=== PATIENT | male | born 1990 | race Caucasian/White ===

== ENCOUNTER 2016-07-06 03:23 | Emergency (ER) | payer OTHER ==
[2016-07-06] MEDS ORDERED: SODIUM CHLORIDE 1,000 ML IV ONE ×2 (03:33→03:34)
[2016-07-06] MEDS ORDERED: ONDANSETRON 4 MG/2 ML VIAL IVPUSH ONE ×2 (03:33→04:01)
--- NOTE | 2016-07-06 03:37 | PDOC ---
History of Present Illness - General Stated Complaint: NAUSEA & VOMITTING Time Seen by Provider: 07/06/16 03:31 History Source: Patient Exam Limitations: No Limitations - History of Present Illness Initial Comments: 07/06/16 03:34 This is a 25-year-old male who comes in complaining of nausea and vomiting and now is feeling slightly dizzy. Patient denies any abdominal pain fevers or chills. Patient denies any chest pain palpitations headache or any other symptoms. Patient denies any associated diarrhea. PAST MEDICAL HISTORY: no significant history PAST SURGICAL HISTORY: no significant history FAMILY HISTORY: no pertinant history SOCIAL HISTORY: Pt lives with family and is employed. MEDICATIONS: reviewed ALLERGIES: As per nursing notes Review of Systems General: No fevers or chills, no weakness, no weight loss HEENT: No change in vision. No sore throat,. No ear pain CardioVascular: No chest pain or shortness of breath Respiratory:No cough, or wheezing. Gastrointestinal: + nausea, + vomitting, no diarrhea or constipation, No rectal bleeding Genitourinary: No dysuria, hematuria, or frequency Musculoskeletal: No joint or muscle pain or swelling Neurologic: No headache, vertigo, dizziness or loss of consciousness Psychiatric: nor depression Skin: No rashes or easy bruising Endocrine: no increased thirst or abnormal weight change Allergic: no skin or latex allergy All other systems reviewed and normal Exam: General: Well-nourished well-developed individual, no acute distress HEENT: Throat: Normal, tonsils normal, no erythema or exudate Neck: Supple, no meningeal signs, no lymphadenopathy Eyes::Pupils equal reactive and round, extraocular motion intact Chest: Nontender to palpation Cardiac: S1-S2 normal, regular rate and rhythm, no murmurs rubs or gallops Respiratory: Lungs clear to auscultation bilateral Abdomen: Soft, nondistended, normal bowel sounds, nontender to palpation diffusely Extremities: Warm, dry, no cyanosis, clubbing, or edema Skin: No rashes Neuro: Alert and oriented x3, nonfocal exam, grossly intact, normal gait Psych: Normal mood and affect Assessment and plan: This is a 25-year-old male who comes in complaining of nausea vomiting but no diarrhea. Patient hydrated with 2 L of fluid given some Zofran able to tolerate pills and discharged home Past History - Past Medical History Allergies/Adverse Reactions: Allergies Allergy/AdvReac Type Severity Reaction Status Date / Time No Known Allergies Allergy Verified 07/06/16 03:28 Home Medications: Ambulatory Orders Dextroamphetamine/Amphetamine [Adderall 10 mg Tablet] 20 mg PO DAILY 07/06/16 Ondansetron [Zofran Odt -] 4 mg SL TID #12 od.tablet 07/06/16 - Immunization History TDAP Vaccination: Yes Immunization Up to Date: Yes - Psycho/Social/Smoking Cessation Hx Anxiety: No Suicidal Ideation: No Smoking Status: Yes Smoking History: Current every day smoker Have you smoked in the past 12 months: Yes Number of Cigarettes Smoked Daily: 20 Hx Alcohol Use: Yes Drug/Substance Use Hx: Yes (COCAINE/ADDERAL) Substance Use Type: Alcohol, Cocaine, Prescribed *DC/Admit/Observation/Transfer Diagnosis at time of Disposition: Nausea and vomiting Qualifiers: Vomiting type: unspecified Vomiting Intractability: non-intractable Qualified Code(s): R11.2 - Nausea with vomiting, unspecified - Discharge Dispostion Disposition: HOME Condition at time of disposition: Stable - Prescriptions Prescriptions: Ondansetron [Zofran Odt -] 4 mg SL TID #12 od.tablet - Patient Instructions Printed Discharge Instructions: DI for Nausea -- Adult, DI for Vomiting -- Adult, Smoking Cessation Additional Instructions: Clear liquids only for the next 6 hours.. After that if you have had no further vomiting you may have bananas, rice, applesauce, or toast. If no further vomiting for another 8 hours you may have regular food. If you vomit again then nothing to eat or drink for 2 hours. then start back with the clear liquids. Return to the emergency department immediately with ANY new, persistent or worsening symptoms. You MUST call and follow up with your doctor tomorrow if not better. Please make sure your doctor reviews the results of your emergency evaluation. Return to the emergency department immediately with ANY new, persistent or worsening symptoms. Continue any medications as previously prescribed by your physician. You should follow up with your primary doctor as soon as possible regarding today's emergency department visit. . Please make sure your doctor reviews the results of your emergency evaluation. Thank you for coming to the Emergency Department today for your care. It was a pleasure to see you today. Please note that your evaluation is INCOMPLETE until you follow-up with your doctor.
[2016-07-06 03:42] VITALS: BP 122/73; PULSE 76; TEMP 97.9; BMI 27.1
== END 2016-07-06 04:37 | disposition home or self-care (01) ==
LOC: FER 03:23
PROC: 3E033GC Introduction of Other Therapeutic Substance into Peripheral Vein, Percutaneous Approach (ICD-10-PCS; principal; 2016-07-06)
PROC: 3E0337Z Introduction of Electrolytic and Water Balance Substance into Peripheral Vein, Percutaneous Approach (ICD-10-PCS; 2016-07-06)
DX: R11.2 Nausea with vomiting, unspecified (principal); F17.210 Nicotine dependence, cigarettes, uncomplicated
CPT/HCPCS: 99281-25

== ENCOUNTER 2018-01-31 12:46 | Emergency (ER) | payer OTHER ==
[2018-01-31 12:50] VITALS: BMI 28.5
[2018-01-31] MEDS ORDERED: SODIUM CHLORIDE 0.9% 1000 ML INFUS.BAG IV ONE ×2 (12:54→13:34)
[2018-01-31] MEDS ORDERED: ONDANSETRON 4 MG/2 ML VIAL ONE (12:54)
[2018-01-31] MEDS ORDERED: ONDANSETRON 4 MG/2 ML VIAL IVPUSH ONE (12:54)
--- NOTE | 2018-01-31 12:57 | PDOC ---
History of Present Illness - General Chief Complaint: Nausea/Vomiting Stated Complaint: NAUSEA, VOMITING Time Seen by Provider: 01/31/18 12:56 History Source: Patient - History of Present Illness Initial Comments: 01/31/18 13:28 The patient is a 27 year old male with no significant PMH who presents to our ED c/o 1 day h/o nausea/vomiting as well as body aches. First episode of emesis was this morning at 9 a.m. when he woke up and has continued throughout the morning prompting his visit to ED. Emesis is clear, NBNB. Has not attempted PO intake today. Denies associated fever, endorses subjective chills. Also notes two episodes of loose watery stool this morning. H/o viral URI including sore throat, runny nose last week which resolved with supportive care. Body aches are diffuse, constant w/o numbness/tingling. PO Maalox did not relieve his symptoms. The patient denies chest pain, shortness of breath, abdominal pain, constipation , dysuria/hematuria, recent travel. NKDA Surgical: denies Social: 3-4 cigarettes daily, social alcohol, denies other toxic habits PMD: None will refer to IM resident clinic Past History - Past Medical History Allergies/Adverse Reactions: Allergies Allergy/AdvReac Type Severity Reaction Status Date / Time No Known Allergies Allergy Verified 01/31/18 12:47 Home Medications: Ambulatory Orders Dextroamphetamine/Amphetamine [Adderall 10 mg Tablet] 20 mg PO DAILY 07/06/16 COPD: No Other medical history: DENIES - Immunization History TDAP Vaccination: Yes Immunization Up to Date: Yes - Suicide/Smoking/Psychosocial Hx Smoking Status: Yes Smoking History: Current every day smoker Have you smoked in the past 12 months: Yes Number of Cigarettes Smoked Daily: 10 Information on smoking cessation initiated: Yes 'Breaking Loose' booklet given: 07/06/16 Hx Alcohol Use: Yes Drug/Substance Use Hx: No Substance Use Type: Alcohol, Cocaine, Prescribed Review of Systems - Review of Systems Constitutional: Yes: Chills. No: Fever HEENTM: No: Blurred Vision, Double Vision, Hearing Loss, Throat Pain Respiratory: No: Cough, Shortness of Breath, Wheezing, Hemoptysis Cardiac (ROS): No: Chest Pain, Lightheadedness, Palpitations, Syncope ABD/GI: No: Constipated, Diarrhea, Nausea, Vomiting Musculoskeletal: Yes: Joint Pain *Physical Exam - Vital Signs Last Vital Signs Temp Pulse Resp BP Pulse Ox 0/0 L 01/31/18 12:47 - Physical Exam General Appearance: Yes: Nourished, Obese HEENT: positive: Normal Voice, Hearing Grossly Normal, Other (mild pharyngeal erythema B/L, no exudates.) Neck: positive: Trachea midline, Supple. negative: Lymphadenopathy (R), Lymphadenopathy (L) Respiratory/Chest: positive: Lungs Clear, Normal Breath Sounds. negative: Crackles, Rales, Rhonchi, Stridor, Wheezing Gastrointestinal/Abdominal: positive: Normal Bowel Sounds, Soft. negative: Tender, Distended, Guarding, Rebound, Tenderness Musculoskeletal: negative: CVA Tenderness (R), CVA Tenderness (L) Extremity: positive: Normal Capillary Refill, Normal Inspection Integumentary: positive: Normal Color, Dry, Warm Neurologic: positive: Fully Oriented, Alert Moderate Sedation - Procedure Monitoring Vital Signs: Procedure Monitoring Vital Signs Temperature Pulse Rate Respiratory Rate Blood Pressure 0/0 L 01/31/18 12:47 O2 Sat by Pulse Oximetry (%) ED Treatment Course - LABORATORY CBC & Chemistry Diagram: 01/31/18 12:59 01/31/18 12:59 Medical Decision Making - Medical Decision Making 01/31/18 17:35 27 year old male with emesis and body aches. Afebrile, HR 94. PE shows mild pharyngeal erythema w/o exudate. Will obtain CMP to correct for electrolyte abnormality 2/2 to vomiting, IV fluids. Influenza swab ordered- if positive will counselor supervisor patient on risk/benefits of Tamiful. Tylenol for myalgia, Zofran for nausea. Reassess. Patient reassessed @ bedside continues to c/o nausea s/p Zofran. Myalgia improved. Will give Reglan, Benadryl additional 1 L IV NS No leukocytosis, CMP shows mild hyponatremia (135) likely 2/2 to decreased PO intake Influenza swab pending Influenza negative. Patient reassessed at bedside. Symptomatically improved, tolerating PO intake. Will send patient home with supportive care, return precautions and primary care follow-up; as patient does not have a PMD, will refer to IM resident clinic. I discussed the physical exam findings, ancillary test results and final diagnoses with the patient. I answered all of the patient's questions. The patient was satisfied with the care received and felt comfortable with the discharge plan and treatment plan. The patient will return to the Emergency Department with any new, persistent or worsening symptoms. *DC/Admit/Observation/Transfer Diagnosis at time of Disposition: Nausea & vomiting, Body aches - Discharge Dispostion Disposition: HOME Condition at time of disposition: Good Decision to Admit order: No - Referrals Referrals: Yoseph John MD [Staff Physician] - - Patient Instructions Printed Discharge Instructions: Smoking Cessation Drugs: Bupropion, Smoking Cessation Drugs: Nicotine Replacement Products, Serious Ways to Stop Smoking, DI for Nausea -- Adult, DI for Vomiting -- Adult Additional Instructions: You can take Motrin (up to 3200 mg daily) alternating with Tylenol (up to 4000 mg daily) for your pain. We have provided a referral to a primary care physician. Please make an appointment within the next 1 week. Return to the Emergency Department for any new/worsening/concerning symptoms including fevers/chills, increased nausea/vomiting. - Post Discharge Activity
[2018-01-31] MEDS ORDERED: ACETAMINOPHEN 1000 MG/100 ML VIAL (NON FORMULARY) IVPB ONE (13:07)
[2018-01-31] MEDS ORDERED: ACETAMINOPHEN INJECTION 100 ML IVPB ONE (13:08)
[2018-01-31] MEDS ORDERED: METOCLOPRAMIDE HCL INJECTION 10 MG/2 ML VIAL IVPB ONE (13:34)
[2018-01-31] MEDS ORDERED: METOCLOPRAMIDE HCL INJECTION 10 MG/2 ML VIAL ONE (13:39)
[2018-01-31 13:40] LABS: HEMATOCRIT 49.1 % (35.4-49); HEMOGLOBIN 16.7 GM/dl (11.7-16.9); MCH 30.3 pg (25.7-33.7); MCHC 33.9 g/dl (32.0-35.9); MEAN CELL VOLUME 89.4 fl (80-96); MEAN PLT VOLUME 9.3 fl (7.5-11.1); PLATELET COUNT 223 K/MM3 (134-434); RBC 5.49 M/mm3 (4.00-5.60); WHITE BLOOD COUNT 10.3 K/mm3 (4.0-10.8)
[2018-01-31 13:48] LABS: ALK PHOS 78 U/L (32-92); ANION GAP 6 MMOL/L (8-16); BLOOD UREA NITROGEN 19 mg/dl (7-18); CALCIUM 8.7 mg/dl (8.4-10.2); CHLORIDE 105 mmol/L (98-107); CO2 24 mmol/L (22-28); CREATININE 0.8 mg/dl (0.6-1.3); GLUCOSE,RANDOM 102 mg/dl (74-106); POTASSIUM 4.1 mmol/L (3.5-5.1); SGOT/AST 17 U/L (10-42); SGPT/ALT 23 U/L (10-40); SODIUM 135 mmol/L (136-145); TOT PROT 7.1 g/dl (6.4-8.3)
[2018-01-31 14:16] LABS: PLATELET ESTIMATE ADEQUATE
[2018-01-31 14:54] VITALS: BP 102/60; PULSE 80; TEMP 98
== END 2018-01-31 15:06 | disposition home or self-care (01) ==
LOC: FER 12:46
PROC: 3E0337Z Introduction of Electrolytic and Water Balance Substance into Peripheral Vein, Percutaneous Approach (ICD-10-PCS; principal; 2018-01-31)
PROC: 3E033NZ Introduction of Analgesics, Hypnotics, Sedatives into Peripheral Vein, Percutaneous Approach (ICD-10-PCS; 2018-01-31)
PROC: 3E033GC Introduction of Other Therapeutic Substance into Peripheral Vein, Percutaneous Approach (ICD-10-PCS; 2018-01-31)
DX: R11.2 Nausea with vomiting, unspecified (principal); R52 Pain, unspecified; F17.210 Nicotine dependence, cigarettes, uncomplicated
CPT/HCPCS: 36415; 80053; 85025; 87804; 99282-25; J0131; J7030

== ENCOUNTER 2018-12-03 19:04 | Emergency (ER) | payer OTHER ==
[2018-12-03 19:10] VITALS: BP 128/84; PULSE 93; TEMP 97.9; BMI 29.1
[2018-12-03] MEDS ORDERED: KETOROLAC TROMETHAMINE 60 MG/2 ML VIAL IM ONE (19:46)
[2018-12-03] MEDS ORDERED: predniSONE 20 MG TABLET (UD) ONE (19:47)
[2018-12-03] MEDS ORDERED: predniSONE 20 MG TABLET (UD) PO ONE (19:47)
[2018-12-03] MEDS ORDERED: KETOROLAC TROMETHAMINE 60 MG/2 ML VIAL ONE (19:47)
--- NOTE | 2018-12-03 20:00 | PDOC ---
Documentation entered by Nayeli Aiken SCRIBE, acting as scribe for Riri Fox MD. Riri Fox MD: This documentation has been prepared by the rickibe, Nayeli Aiken SCRIBE, under my direction and personally reviewed by me in its entirety. I confirm that the documentation accurately reflects all work , treatment, procedures, and medical decision making performed by me. History of Present Illness - General Chief Complaint: Pain Stated Complaint: PAIN FROM BONE SPURS TO RIGHT FOOT History Source: Patient Exam Limitations: No Limitations - History of Present Illness Initial Comments: 12/03/18 19:59 The patient is a 28-year-old male who presents to the emergency department with right great toe pain. The patient reports a history of right foot pain after wearing narrow shoes from a young age, which usually self resolves. The patient reports yesterday he was wearing his work boots, which is too small for his feet , and he was driving. The patient reports he had to move his seat very close, due to that he had to jam on the brakes and gas with his great toe. The patient reports hes been having pain on the right great toe, thats aggravated with movement, unrelieved with Tylenol. Denies prior orthopedic or podiatry follow up. PAST MEDICAL HISTORY: no significant history PAST SURGICAL HISTORY: no significant history FAMILY HISTORY: no pertinent history SOCIAL HISTORY: Pt lives with family and is employed. MEDICATIONS: reviewed ALLERGIES: As per nursing notes Review of system: General: No fevers or chills, no weakness, no weight loss HEENT: No change in vision. No sore throat,. No ear pain CardioVascular: No chest pain or shortness of breath Respiratory:No cough, or wheezing. Gastrointestinal: no nausea, vomiting, diarrhea or constipation, No rectal bleeding Genitourinary: No dysuria, hematuria, or frequency Musculoskeletal: +right great toe pain. No other joint or muscle pain or swelling Neurologic: No headache, vertigo, dizziness or loss of consciousness Psychiatric: nor depression Skin: No rashes or easy bruising Endocrine: no increased thirst or abnormal weight change Allergic: no skin or latex allergy All other systems reviewed and normal Physical exam: GENERAL: The patient is awake, alert, and fully oriented, in no acute distress. HEAD: Normal with no signs of trauma. EYES: Pupils equal, round and reactive to light, extraocular movements intact, sclera anicteric, conjunctiva clear. EXTREMITIES: +right great toe erythema and swelling, with increased warmth. Marked tenderness with decreased range of motion. No obvious trauma. Neurovascularly intact. Rest of the extremity: Normal range of motion, no edema. NEUROLOGICAL: Normal speech, normal gait. PSYCH: Normal mood, normal affect. SKIN: Warm, Dry, normal turgor, no rashes or lesions noted. MDM: Assessment and plan: This is a 28-year-old male who comes in complaining of a right great toe pain. Patient has had multiple episodes of similar pain in the past. It is unclear as to whether or not this is gout however patient said that he thinks it may be gout but has never been diagnosed with gout in the toe. Patient however has not seen a wallcovering texturer or an orthopedist for the pain. Patient said he usually takes Tylenol which gives him some relief and it resolves on its own in time. However this time is worse than usual and he took Tylenol without relief. Patient was given Toradol and prednisone here in the emergency department. A uric acid level was sent 21:00 Patient's uric acid was markedly elevated. Patient had an x-ray that was negative for any acute pathology. Patient symptoms are consistent with gout given the elevated uric acid I will start him on an anti-inflammatory and give him referral to an orthopedist. Prescription for naproxen 500 mg twice daily was sent to the patient's pharmacy. Past History - Past Medical History Allergies/Adverse Reactions: Allergies Allergy/AdvReac Type Severity Reaction Status Date / Time No Known Allergies Allergy Verified 12/03/18 19:06 Home Medications: Ambulatory Orders Dextroamphetamine/Amphetamine [Adderall 10 mg Tablet] 20 mg PO DAILY 07/06/16 Naproxen [Naprosyn] 500 mg PO BID #28 tablet 12/03/18 COPD: No - Immunization History TDAP Vaccination: Yes Immunization Up to Date: Yes - Psycho Social/Smoking Cessation Hx Smoking Status: Yes Smoking History: Current some day smoker Have you smoked in the past 12 months: Yes Number of Cigarettes Smoked Daily: 5 Information on smoking cessation initiated: Yes 'Breaking Loose' booklet given: 07/06/16 Hx Alcohol Use: Yes (WEEKENDS) Drug/Substance Use Hx: No Substance Use Type: Alcohol, Cocaine, Prescribed *Physical Exam - Vital Signs Last Vital Signs Temp Pulse Resp BP Pulse Ox 97.9 F 93 H 16 128/84 98 12/03/18 19:07 12/03/18 19:07 12/03/18 19:07 12/03/18 19:07 12/03/18 19:07 ED Treatment Course - Medications Given in the ED: ED Medications Discontinued Medications Generic Name Dose Route Start Last Admin Trade Name Lefty PRN Reason Stop Dose Admin Ketorolac Tromethamine 60 mg 12/03/18 19:46 12/03/18 19:51 Toradol Injection - IM 12/03/18 19:47 60 mg ONCE ONE Administration Prednisone 40 mg 12/03/18 19:47 12/03/18 19:51 Deltasone - PO 12/03/18 19:48 40 mg ONCE ONE Administration Discharge - Discharge Information Problems reviewed: Yes Clinical Impression/Diagnosis: Gout attack Qualifiers: Gout site: toe Gout etiology: unspecified cause Laterality: right Qualified Code(s): M10.9 - Gout, unspecified Condition: Stable Disposition: HOME - Admission No - Additional Discharge Information Prescriptions: Naproxen [Naprosyn] 500 mg PO BID #28 tablet - Follow up/Referral Referrals: Jhonathan Anderson MD [Staff Physician] - - Patient Discharge Instructions Additional Instructions: Take naproxen 1 tablet twice a day for [address] Anderson and make an appointment to follow-up in 2 to 3 days. Return to the emergency department immediately with ANY new, persistent or worsening symptoms. Continue any medications as previously prescribed by your physician. You should follow up with your primary doctor as soon as possible regarding today's emergency department visit. . Please make sure your doctor reviews the results of your emergency evaluation. Thank you for coming to the Emergency Department today for your care. It was a pleasure to see you today. Please note that your evaluation is INCOMPLETE until you follow-up with your doctor. - Post Discharge Activity
== END 2018-12-03 21:52 | disposition home or self-care (01) ==
LOC: FER 19:04
PROC: 3E0233Z Introduction of Anti-inflammatory into Muscle, Percutaneous Approach (ICD-10-PCS; principal; 2018-12-03)
DX: M10.9 Gout, unspecified (principal); F17.210 Nicotine dependence, cigarettes, uncomplicated
CPT/HCPCS: 36415; 73660-TC-FY; 84550; 99281-25

== ENCOUNTER 2022-01-19 14:40 | Emergency (ER) | payer OTHER ==
[2022-01-19 14:58] VITALS: BP 129/70; PULSE 70; RESP 18; TEMP 98; BMI 32.5
[2022-01-19] MEDS ORDERED: FAMOTIDINE 20 MG/50 ML IVPB 20 MG/50 ML MG IVPB ONE ×2 (15:16→15:25)
[2022-01-19] MEDS ORDERED: ONDANSETRON 4 MG/2 ML VIAL IVPUSH ONE (15:16)
[2022-01-19] MEDS ORDERED: SODIUM CHLORIDE 1,000 ML IV STA (15:16)
[2022-01-19] MEDS ORDERED: ACETAMINOPHEN 1000 MG/100 ML BAG IVPB ONE (15:16)
[2022-01-19] MEDS ORDERED: ONDANSETRON 4 MG/2 ML VIAL ONE (15:24)
[2022-01-19] MEDS ORDERED: ACETAMINOPHEN INJECTION 100 ML IVPB ONE (15:25)
[2022-01-19 16:30] LABS: ALBUMIN 3.8 g/dl (3.4-5.0); BILIRUBIN,TOTAL 0.9 mg/dl (0.2-1); CALCIUM 8.7 mg/dl (8.5-10); CREATININE 0.9 mg/dl (0.55-1.3); TOT PROT 6.9 g/dl (6.4-8.2)
[2022-01-19 16:32] LABS: HEMATOCRIT 48.7 % (35.4-49); HEMOGLOBIN 16.8 G/dL (11.7-16.9); MCH 30.3 pg (25.7-33.7); MCHC 34.4 g/dl (32.0-35.9); PLATELET COUNT 234.8 10^3/uL (134-434); RBC 5.53 10^6/uL (4.00-5.60); RDW 13.5 % (11.9-15.9); WHITE BLOOD COUNT 10.3 10^3/uL (4.0-10.8)
[2022-01-19 16:43] LABS: PLATELET ESTIMATE ADEQUATE
== END 2022-01-19 18:49 | disposition home or self-care (01) ==
LOC: FER 14:40
PROC: 3E033GC Introduction of Other Therapeutic Substance into Peripheral Vein, Percutaneous Approach (ICD-10-PCS; principal; 2022-01-19)
DX: R10.84 Generalized abdominal pain (principal); R19.7 Diarrhea, unspecified; R11.10 Vomiting, unspecified
CPT/HCPCS: 0241U-QW; 36415; 80053; 83690; 85027; 99284-25